=== PATIENT | male | born 1985 | race Caucasian/White ===

== ENCOUNTER 2021-11-27 09:00 | Emergency (ER) | payer OTHER ==
[2021-11-27 09:09] VITALS: BP 138/84; PULSE 76; TEMP 98.1
[2021-11-27] MEDS ORDERED: RABIES IMMUNE GLOBULIN 300 UNITS/1 ML VIAL IM ONE (09:58)
[2021-11-27 10:15] VITALS: BMI 29.0
[2021-11-27] MEDS ORDERED: IBUPROFEN 600 MG TABLET (FP) PO ONE (10:40)
[2021-11-27] MEDS ORDERED: DIPHTH,PERTUSS(ACELL),TET 0.5 ML DISP.SYRIN IM ONE (11:00)
[2021-11-27] MEDS ORDERED: RABIES VACCINE (PCEC)/PF 2.5 UNIT/VIAL IM ONE (11:00)
== END 2021-11-27 11:51 | disposition home or self-care (01) ==
LOC: JER 09:00 → JERFT 09:00
PROC: 3E0234Z Introduction of Serum, Toxoid and Vaccine into Muscle, Percutaneous Approach (ICD-10-PCS; principal; 2021-11-27)
PROC: 3E0234Z Introduction of Serum, Toxoid and Vaccine into Muscle, Percutaneous Approach (ICD-10-PCS; 2021-11-27)
DX: S61.451A Open bite of right hand, initial encounter (principal); W54.0XXA Bitten by dog, initial encounter
CPT/HCPCS: 90375; 90675; 90715; 99284-25